=== PATIENT | female | born 1970 | race Caucasian/White ===

== ENCOUNTER 2019-02-11 07:47 | Inpatient (IN) | payer MEDICAID ==
[~2019-02-11] VITALS: Ht 162.6 cm; Wt 88.9 kg
[2019-02-11 07:52] VITALS: Ht 162.6 cm; Wt 88.9 kg
--- NOTE | 2019-02-11 08:30 | NUR ---
PT C/O INTERMITTENT FEVER AND NAUSEA X2 DAYS, PT REPORTS RECENT TUMMY TUCK 21 DAYS AGO AND STS "I ACCIDENTALLY PULLED OUT THE 2 DRAINS" SHE IS POINTING TO HER PELVIC REGION, PT DENIES ANY WHITE DRAINAGE, PT AAOX4, RESPIRATIONS EVEN AND UNLABORED, NO S/S RESP DISTRESS NOTED AT THIS TIME, PT AFEBRILE AT THIS TIME, INCISION WITH SUTURES NOTED ACROSS LOWER ABD WARM TO TOUCH WITH MILD ERYTHEMA NOTED, 2 PUNCTURE SITES NOTED TO RIGHT CORNER AND LEFT CORNER OF PELVIS, NO DRIANAGE NOTED, NO NAUSEA AND/OR VOMITING AT THIS TIME. PT GOWNED PLACED ON FULL CM, SINUS TACYCARDIA, SPOUSE AT BEDSIDE, PT IN NAD AT THIS TIME.
--- NOTE | 2019-02-11 08:31 | NUR ---
PT ALSO C/O LOWER QUADRANT PAIN AT INCISION SITE
--- NOTE | 2019-02-11 08:40 | NUR ---
PT AMBULATORY WITH STEADY GAIT TO RESTROOM
--- NOTE | 2019-02-11 08:50 | NUR ---
WARM BLANKET PROVIDED PER PT REQUEST AND COMFORT, PT AFEBRILE AT THIS TIME
[2019-02-11 08:57] LABS: CALCIUM 8.6 mg/dL (8.5-10.1); CARBON DIOXIDE 14.9 mmol/L (21-32); CHLORIDE SERUM 99 mmol/L (98-107); CREATININE SERUM 0.9 mg/dL (0.6-1.0); GFR1 > 60 mL/min; GLUCOSE SERUM 124 mg/dL (74-106); POTASSIUM SERUM 3.5 mmol/L (3.5-5.1); SODIUM SERUM 132 mmol/L (136-145)
--- NOTE | 2019-02-11 09:01 | NUR ---
PT BACK FROM CT IN STABLE CONDITION
[2019-02-11 09:02] LABS: ALBUMIN 2.9 g/dL (3.4-5.0); ALKALINE PHOSPHATASE 90 U/L (46-116); ALT/SGPT 16 U/L (14-59); AST/SGOT 13 U/L (15-37); BILIRUBIN TOTAL 0.5 mg/dL (0.20-1.00); TOTAL PROTEIN, SERUM 7.5 g/dL (6.4-8.2)
--- NOTE | 2019-02-11 09:05 | NUR ---
ICE CHIPS PROVIDED PER MD GUERRERO VERBAL OKAY
[2019-02-11 09:22] LABS: UA SPECIFIC GRAVITY >=1.030 (1.005-1.035); microscopic required? YES; urine erythrocyte 3+ (NEGATIVE)
--- NOTE | 2019-02-11 09:42 | NUR ---
PT RESTING IN POSITION OF COMFORT, PT IN NAD, AT BEDSIDE, CALL LIGHT WITHIN REACH
--- NOTE | 2019-02-11 10:13 | NUR ---
CT RESULST REVIEWED, MD GUERRERO MADE AWARE
[2019-02-11 10:18] LABS: PLATELET COUNT 364 x10^3mcL (130-400); RED CELL DISTRIBUTION WIDTH 17.1 % (11.5-14.5)
--- NOTE | 2019-02-11 10:29 | NUR ---
PT C/O "SILL BEING SOOOO COLD" ORAL TEMP CHECKED, PT FEBRILE, BLANKET REMOVED, COOLING MEASURES INITIATED, MD GUERRERO MADE AWARE
--- NOTE | 2019-02-11 10:36 | NUR ---
PER MD GUERRERO VERBAL ORDER, ADMIN 1GM TYLENOL PO, TYLENOL ADMIN.
--- NOTE | 2019-02-11 11:26 | NUR ---
PT SPOUSE NUMBER VERIFIED CELL, PT REQUESTING TO CONTACT HIM WHEN SHE GETS ADMITTED.
--- NOTE | 2019-02-11 11:28 | NUR ---
PT IN POSITION OF COMFORT, NEW ICE PACKS APPLIED TO BACK OF NECK AND GROIN, CALL LIGHT WITHIN REACH
--- NOTE | 2019-02-11 11:34 | NUR ---
LIGHTS OFF PER PT REQUEST AND COMFORT
[2019-02-11] MEDS ORDERED: METFORMIN ER500 M1 PO (11:35)
[2019-02-11] MEDS ORDERED: LOSARTAN POTASS25 M1 (11:37)
[2019-02-11] MEDS ORDERED: LANTUS SOLOS100 U/M1 (11:37)
--- NOTE | 2019-02-11 11:54 | NUR ---
ABHISHEK [facility], CALLED FOR REPORT, REPORT GIVEN, ABHISHEK CURRENTLY SPEAKING WITH MD GUERRERO PER REQUEST. ABHISHEK WAS MADE AWARE PT UNABLE TO RECALL THE NAME OF THE HOSPITAL WHERE THE PROCEDURE TOOK PLACE. I INFORMED HER I WILL CONTACT HER IF PT IS ABLE TO PROVIDE MORE INFO. ABHISHEK CALL THUY NUMBER GIVEN [phone] EXT. [phone]
[2019-02-11 12:09] LABS: MONOCYTE 4 % (0-7); SEGMENTED NEUTROPHILS 85 % (37-75)
[2019-02-11 12:10] LABS: rbc morphology (normal/abnorm) NORMAL (NORMAL)
--- NOTE | 2019-02-11 12:32 | NUR ---
PT PROVIDED THE FOLLOWING INFORMATION REGARDING THE PROCEDURE.. DR. CARDOSO [id number] [facility]. [address] MD GUERRERO MADE AWARE BACK AT BEDSIDE
--- NOTE | 2019-02-11 13:07 | NUR ---
PT ASLEEP BUT AROUSABLE IN POSITION OF COMFORT, RESPIRATIONS EVEN AND UNLABORED, SPOUSE AT BEDSIDE, CALL LIGHT WITHIN REACH
--- NOTE | 2019-02-11 14:18 | NUR ---
PT AMBULATORY WITH STEADY GAIT TO RESTROOM
--- NOTE | 2019-02-11 15:30 | NUR ---
RECEIVED PT VIA [email or web address] FROM E/D, ACCOMPANIED BY TRANSPORTER AND PT'S , AAYUSH BURKS. PT A/A/O X 4, CALM, COOPERATIVE. AMBULATORY, NO GAIT OR BALANCE IMPAIRMENT NOTED WHEN WALKING FROM GURNEY TO BED. PT IS TACHYCARDIC AT HR 103, DENIES CHEST PAIN OR DISCOMFORT AT THIS TIME. SCD BY BEDSIDE. NO ACUTE RESPIRATORY DISTRESS NOTED. ABD SOFT, ROUND, TENDERNESS ON PALPATION AROUND SURGICAL SITES (C/O CONSTANT THROBBING ABD PAIN 10/10 THAT IS EXACERBATED BY NOTHING AND RELIEVED BY PAIN MEDICATIONS; CLOSED SURGICAL WOUNDS NOTED TO UMBILICUS AND BILATERAL LOWER ABDOMEN, BOTH SUPERVISOR TOY ASSEMBLY), NORMOACTIVE BOWEL SOUNDS, LAST BM 02/04/19, +NAUSEA. POOR PO INTAKE > 3 DAYS; UNABLE TO TOLERATE SOLID FOOD AT THIS TIME. VOIDS FREELY, DENIES DYSURIA. IV SITE RAC 20G, CDI. ORIENTED PT AND TO ROOM, BED CONTROLS, CALL LIGHT SYSTEM. SIDE RAILS UP X 2, BED IN LOW POSITION. WILL ENDORSE TO CARROLL LOBO.
[2019-02-11] MEDS ORDERED: LOSARTAN POTASS50 M1 PO (16:06)
[2019-02-11 16:08] VITALS: BP 117/65
[2019-02-11 16:37] LABS: MAGNESIUM 1.9 mg/dL (1.8-2.4); PHOSPHOROUS 2.9 mg/dL (2.5-4.9)
--- NOTE | 2019-02-11 18:00 | NUR ---
PATIENT WAS C/O OF NAUSEA AND VOMITING, MEDICATED PATIENT WITH ZOFRAN PER PREOTOCOL (SEE EMAR). PATIENT WAS C/O SEVERE PAIN 10/10 TO LOWER BACK, MEDICATED PATIENT WITH MORPHINE PER PROTOCOL (SEE EMAR) . REPOSITION PATIENT FOR COMFORT. CALL LIGHT WITHIN REACH BED IN LOW POSITION. WILL CONTINUE TO MONITOR.
--- NOTE | 2019-02-11 18:36 | NUR ---
PATIENT WAS C/O CHILLS, ASSESSED PATIENT TEMP, 101.8. MEDICATED PATIENT WITH TYLENOL PER PROTOCOL (SEE EMAR). COOLING MEASURE WERE APPLIED AT THIS TIME. PATIENT REPORTS CONTINOUS PAIN, PAGED RESIDENT AT THIS TIME, ALSO PAGED RESIDENT FOR CLARIFICATION FOR TWO BOLUS THAT WERE ORDERED IN ER. ABX INFUSING TO RAC, IV SITE CDI&PATENT. CALL LIGHT WTHIN REACH, BED IN LOW POSITION, WILL ENDORSE REPORT TO NIGHT RN.
--- NOTE | 2019-02-11 19:40 | NUR ---
RECEIVED PT SITTING IN BED W/ AT BEDSIDE. SHE IS ALERT,ORIENTED X4. LUNGS CTA. NO SOB ON ROOM AIR. BOWEL SOUNDS ACTIVE. W/ SX SITE TO LOWER ABDOMEN KARIN. PT IS C/O PAIN TO SX SITE 09/26 ( AFTER MORPHINE WAS GIVEN BY AM NURSE). W/ IVF NS INFUSING AT 100 CC/HR VIA RTAC. CALL LIGHT W/IN REACH.
--- NOTE | 2019-02-11 20:17 | NUR ---
PT STATED PAIN STILL AT 8/10. MEDICATED PT W/ NORCO 7.5/325 MG PO.
[2019-02-11 21:32] VITALS: BP 115/49
--- NOTE | 2019-02-11 22:53 | NUR ---
CALLED [facility] AND SPOKE W/ LB WHO HANDLES PT'S TRANSFERS. PER LB, PT'S TRANSFER WAS CANCELLED BY Bere HEATH . NO OTHER INFORMATION WAS GIVEN.
[2019-02-11 23:30] VITALS: BP 106/64
--- NOTE | 2019-02-12 02:00 | NUR ---
PT APPEARS TO BE SLEEPING COMFORTABLY.
--- NOTE | 2019-02-12 05:22 | NUR ---
PT REMAINS ASLEEP. SHE WAS MEDICATED FOR PAIN X1 THIS SHIFT. SHE HAS NO C/O PAIN AT THIS TIME. PT KEPT NPO EXCEPT FOR MEDS ORDERED. PT AMBULATING W/O DIFFICULTY. IVF NS INFUSING AT 100 CC/HR VIA RTAC. ALL NEEDS ATTENDED TO.
--- NOTE | 2019-02-12 05:53 | NUR ---
PT C/O HEADACHE 09/26. PT ALSO W/ TEMP OF 101.8 ORALLY. TYLENOL 650 MG PO GIVEN.
[2019-02-12 06:22] VITALS: BP 119/47
--- NOTE | 2019-02-12 06:55 | NUR ---
PT IS RESTING MORE COMFORTABLY. NO C/O HEADACHE AT THIS TIME. TEMP CRDXECFFP=690.2 (ORALLY) AFTER TYLENOL. COOLING MEASURES IMPLEMENTED.
--- NOTE | 2019-02-12 07:30 | NUR ---
RECEIVED PATIENT AWAKE/ALERT IN BED, DENIES PAIN, MED-SURG. IV TO RAC INFUSING WELL. POC EXPLAINED. COOL MEASURES. CALL LIGHT WITHIN REACH.
[2019-02-12 08:29] VITALS: BP 95/50
[2019-02-12 08:42] LABS: CALCIUM 8.3 mg/dL (8.5-10.1); CARBON DIOXIDE 14.8 mmol/L (21-32); CHLORIDE SERUM 102 mmol/L (98-107); CREATININE SERUM 0.8 mg/dL (0.6-1.0); GFR1 > 60 mL/min; GLUCOSE SERUM 145 mg/dL (74-106); PHOSPHOROUS 1.7 mg/dL (2.5-4.9); POTASSIUM SERUM 3.3 mmol/L (3.5-5.1); SODIUM SERUM 133 mmol/L (136-145)
[2019-02-12 08:46] LABS: BASOPHIL % 0.3 % (0-2); PLATELET COUNT 338 x10^3mcL (130-400)
[2019-02-12 08:48] LABS: RED CELL DISTRIBUTION WIDTH 17.5 % (11.5-14.5)
--- NOTE | 2019-02-12 09:55 | NUR ---
DR. GRAY AND KAY LYONS AT BEDSIDE SPOKE TO PATIENT REGARD ABDOMINAL WOUND, CN TRANSLATE IN MONGOLIAN FOR PROCEDURE ABDOMINAL WOUND DEBRIDEMENT AND POSSIBLE WOUND VAC DEVICE PLACEMENT. PATIENT AGREE WITH PROCEDURE. PER DR. GRAY IF PATIENT HAVE ANY MORE QUESTIONS LATER WILL ADDRESSED IN OR.
--- NOTE | 2019-02-12 10:15 | NUR ---
PATIENT SIGN CONSENT FOR ABDOMINAL DEBRIDEMENT AND POSSIBLE WOUND VAC DEVICE PLACEMENT. NO FURTHER QUESTIONS, REMAIN AT BEDSIDE ASSIST PATIENT WITH SGAE WIPE. NEEDS MET.
--- NOTE | 2019-02-12 12:11 | NUR ---
PATIENT RESTING IN BED NO COMPLAIN, C/O HUNGRY. BS 90 NO COVERAGE NEEDED. ZOSYN IVPB ADMINISTERED. CONT TO MONITOR.
[2019-02-12 12:57] VITALS: BP 108/59
--- NOTE | 2019-02-12 14:25 | NUR ---
OR NURSE RAI AT BEDSIDE PICKING UP PATIENT AT THIS TIME. OFF FLOOR VIA BED. IV HEPLOCK. NO SWELLING NOTED.
--- NOTE | 2019-02-12 16:56 | NUR ---
PATIENT BACK FROM OR AWAKE/ALERT NO C/O PAIN AT THIS TIME, NEW IV TO LH #20G AND MID-LOW ABDOMEN INCISION WITH WOUND VAC IN PLACE. CONNECT PATIENT TO IV PUMP CONT IVF AT 100ML/HR. KCL 20MEQ PO X1 ADMINISTERED ORDERED FOR K 3.3 AND BS 121 NO COVERAGE NEEDED. JUICE AND JELLO OFFERED, CONT TO MONITOR.
--- NOTE | 2019-02-12 17:49 | NUR ---
PATIENT UP TO BRP AND BACK TO BED, NO C/O PAIN. VOIDED. ZOSYN IVPB INFUSING AT 100ML/HR TO LH IV PATENT, INFORM PATIENT DOCTOR ORDER CLEAR LIQUID DIET AND ADV IN AM.
--- NOTE | 2019-02-12 18:33 | NUR ---
PATIENT SITTING UP IN BED EATING HER CLEAR LIQUID DIET, NO COMPLAIN. VANCOMYCIN IVPB INFUSING AT 250ML/HR, NEEDS MET. CONT TO MONITOR.
--- NOTE | 2019-02-12 19:10 | NUR ---
RECEIEVED REPORT FROM DAY SHIFT NURSE, ROVERTO HODGES. PT IS AAOX4. SPEECH IS CLEAR. DENIES SPENCE. IRISH SPEAKING. M/S PT. DENIES CP. PULSES ARE PALPABLE. NO EDEMA NOTED. BREATHING IS EVEN AND UNLABORED ON RA. LUNG SOUNDS CTA. NO SIGNS OF RESP DISTRESS. DENIES SOB. ABD IS SOFT, ROUND, AND NONDISTENDED. DENIES N/V/D. VOIDS FREELY. DENIES DYSURIA. AMBULATORY. SX WOUND NOTED TO UMBILICUS AND LOWER ABD, KARIN. MID ABD WITH WOUND VAC, CDI DRAINING RED OUTPUT. DENIES ANY PAIN AT THIS TIME. AT BEDSIDE. IV TO RAC DRY AND INTACT. NO ERYTHEMA NOTED. BED IN LOWEST POSITION. CALL LIGHT WITHIN REACH. WILL CONTINUE TO MONITOR.
[2019-02-12 21:25] VITALS: BP 104/62
--- NOTE | 2019-02-12 21:31 | NUR ---
ROUTINE MEDICATIONS WERE GIVEN AND TOLERATED WELL. NO ACUTE DISTRESS NOTED. BREATHING IS EVEN AND UNLABORED ON RA. NO SIGNS OF RESP. DISTRESS. ASSISTED PT TO THE RESTROOM, ABLE TO WALK FINE. DENIES ANY PAIN AT THIS TIME. AT BEDSIDE. BED IN LOWEST POSITION. CALL LIGHT WITHIN REACH. WILL CONTINUE TO MONITOR.
--- NOTE | 2019-02-12 23:00 | NUR ---
PT C/O SPENCE AND NAUSEA. MEDICATED WITH TYLENOL AND ZOFRAN PER APR ORDER. WILL REASSESS AND CHECK EFFECTIVENESS. BREATHING IS EVEN AND UNLABORED ON RA. NO SIGNS OF RESP DISTRESS. BED IN LOWEST POSITION. CALL LIGHT WITHIN REACH. WILL CONTINUE TO MONITOR.
--- NOTE | 2019-02-13 01:14 | NUR ---
PT IS RESTING COMFORTABLY IN BED, ON PHONE. BREATHING IS EVEN AND UNLABORED ON RA. NO SIGNS OF RESP. DISTRESS. PT DENIES NAUSEA OR PAIN AT THIS TIME. STATED THE MEDICATION HELPED HER A LOT. BED IN LOWEST POSITION. CALL LIGHT WITHIN REACH. WILL CONTINUE TO MONITOR.
--- NOTE | 2019-02-13 02:16 | NUR ---
PT RETURNING BACK FROM THE RESTROOM. DENIES ANY PAIN AT THIS TIME. BREATHING IS EVEN AND UNLABORED ON RA. NO SIGNS OF RESP DISTRESS. PT UPSET THAT SHE CANNOT SLEEP. ASKED PT IF SHE WOULD LIKE A SLEEPING PILL, SHE SAID YES. AWARE. AWAITING ORDERS.
--- NOTE | 2019-02-13 03:49 | NUR ---
PT IS RESTING COMFORTABLY WITH EYES CLOSED, BUT EASILY AROUSABLE WHEN SPOKEN TO. BREATHING IS EVEN AND UNLABORED ON RA. NO SIGNS OF RESP. DISTRESS. BED IN LOWEST POSITION. CALL LIGHT WITHIN REACH. WILL CONTINUE TO MONITOR.
--- NOTE | 2019-02-13 05:31 | NUR ---
PT SLEPT IN SHORT INTERVALS THROUGHOUT THE NIGHT AND COMPLIED WITH NURSING CARE WITH NO ACUTE EVENTS OCCURRING DURING THE SHIFT. COMFORT AND SAFETY MEASURES MAINTAINED. ALL NEEDS ASSESSED AND ATTENDED TO. WILL CONTINUE TO MONITOR AND ENDORSE CARE TO DAY SHIFT NURSE.
--- NOTE | 2019-02-13 06:02 | NUR ---
PT HAVING REACTION TO VANCOCIN. HIVES NOTED TO R ARM. PT DENIES ANY SOB OR DIFFICULTY BREATHING. MEDICATION STOPPED, AND D/C'D FROM PT. FLUSHED PTS IV. WILL CALL DR DELCID AND MAKE AWARE.
--- NOTE | 2019-02-13 06:06 | NUR ---
PER DR DELCID, WILL ORDER BENADRYL AND DO NOT CONTINUE MEDICATION. WILL CARRY OUT ORDERS AND CONTINUE MONITORING PT.
[2019-02-13 06:08] VITALS: BP 94/66
--- NOTE | 2019-02-13 07:20 | NUR ---
RECEIVED PT FROM BRAND REPRESENTATIVE RN. A/OX4. MED SURG. DENIES CHEST PAIN/PRESSURE. RESPIRATIONS EQUAL AND UNLABORED ON RA. DENIES SOB. PT DENIES ANY PAIN AT THIS TIME. PT DENIES ANY N/V AT THIS TIME. S/P ADBOMINAL WOUND DEBRIDEMENT ON 02/12, WOUND VAC IN PLACE TO LOWER MID ABDOMEN, CDI, DRAINING SANGINEOUS DRAINAGE. SURGICAL WOUND TO UMBILICUS AND LOWER ABDOMEN, KARIN. NO DRAINAGE NOTED. IV TO RH SALINE LOCKED. NO REDNESS OR SWELLING NOTED. HIVES NOTED TO LH SMALL AND DRY. WILL CONTINUE TO MONITOR. CALL LIGHT IN REACH. BED IN LOWEST POSITION.
[2019-02-13 08:04] VITALS: BP 106/61
--- NOTE | 2019-02-13 09:46 | NUR ---
PT WALKED TO BATHROOM. TOLERATED WELL. PT DENIES ANY ABDOMINAL PAIN AT THIS TIME. IV TO LH PATENT AND INFUSING. NO REDNESS OR SWELLING NOTED. GIVEN PO MED. TOLERATED WELL. BLOOD PRESURE CHECKED WAS 110/57, HR 79. PT ASKING FOR MEDICATION FOR ACID REFLUX, EXPLAINED TO PT PRILOSEC WAS GIVEN THIS AM, PT STILL ASKING FOR PRILOSEC. RIN WAREHOUSE AND RECEIVING SUPERVISOR MADE AWARE. WILL CONTINUE TO MONITOR. CALL LIGHT IN REACH. BED IN LOWEST POSITION.
[2019-02-13 11:24] VITALS: BP 121/67
[2019-02-13 16:57] VITALS: BP 112/59
--- NOTE | 2019-02-13 19:10 | NUR ---
PT RECEIVED A/O X4, ABLE TO MAKE NEEDS KNOWN. MED-SURG, DENIES ANY CP/PRESSURE. PULSES PALPABLE, NO EDEMA PRESENT. BREATHING IS EVEN AND UNLABORED ON RA, NO RESP DISTRESS NOTED. ABD SOFT AND ROUND, BOWEL TONES ACTIVE X4 QUAD, DENIES N/V. S/P WOUND DEBRIDEMENT AND WOUND VAC PLACEMENT ON 02/12/19. WOUND VAC TO MID LOWER ABD IN PLACE, SUCTION TUBING FREE FROM KINDS. SURGICAL WOUND TO MID ABD, DRY, KARIN. PT DENIES HAVING ANY PAIN AT THIS TIME. IV TO LW, PATENT AND INTACT, SITE WNL. NO ACUTE DISTRESS OBSERVED. FAMILY AT BEDSIDE. BED IN LOWEST SETTING, SIDE RAILS UP X2, CALL LIGHT WITHIN REACH. WILL CONT TO MONITOR.
--- NOTE | 2019-02-13 19:10 | NUR ---
PT RECEIVED A/O X4, ABLE TO MAKE NEEDS KNOWN. MED-SURG, DENIES ANY CP/PRESSURE. PULSES PALPABLE, NO EDEMA PRESENT. BREATHING IS EVEN AND UNLABORED ON RA, NO RESP DISTRESS NOTED. ABD SOFT AND ROUND, BOWEL TONES ACTIVE X4 QUAD, DENIES N/V. S/P WOUND DEBRIDEMENT AND WOUND VAC PLACEMENT ON 02/12/19. WOUND VAC TO MID LOWER ABD IN PLACE, SUCTION TUBING FREE FROM KINKS. SURGICAL WOUND TO MID ABD, DRY, KARIN. PT DENIES HAVING ANY PAIN AT THIS TIME. IV TO LW, PATENT AND INTACT, SITE WNL. NO ACUTE DISTRESS OBSERVED. FAMILY AT BEDSIDE. BED IN LOWEST SETTING, SIDE RAILS UP X2, CALL LIGHT WITHIN REACH. WILL CONT TO MONITOR.
--- NOTE | 2019-02-13 19:27 | NUR ---
ENDORSED CARE TO POWDER TRUCK DRIVER RN. ALL QUESTIONS AND CONCERNS ADDRESSED.
[2019-02-13 20:25] VITALS: BP 106/46
--- NOTE | 2019-02-14 00:13 | NUR ---
PT AWAKE AND ALERT, TALKING ON CELL PHONE. BREATHING IS EVEN AND UNLABORED, NO RESP DISTRESS NOTED. PT DENIES HAVING ANY PAIN AT THIS TIME. WOUND VAC IN PLACE TO LOWER ABD, TUBING FREE OF KINKS, BLOODY OUTPUT NOTED IN DRAINAGE CHAMBER. IV ABX INFUSING WELL, SITE WNL. NO ACUTE DISTRESS OBSERVED. CALL LIGHT WITHIN REACH. WILL CONT TO MONITOR.
--- NOTE | 2019-02-14 01:03 | NUR ---
PT C/O ITCHINESS TO NOSE AND REQUESTING BENADRYL. RESIDENT CALLED AND DR JOHNSON MADE AWARE. ONE TIME ORDER OF BENADRYL PO GIVEN ORDERED. NO ACUTE DISTRESS NOTED. WILL CONT TO MONITOR.
[2019-02-14 05:31] VITALS: BP 102/50
--- NOTE | 2019-02-14 06:37 | NUR ---
PT SLEPT AT INTERVALS THROUGHOUT THE EVENING. BREATHING IS EVEN AND UNLABORED, NO RESP DISTRESS NOTED. PT DENIES HAVING ANY PAIN AT THIS TIME. IV TO LW INTACT. WOUND VAC IN PLACE TO LOWER ABD, TUBING FREE OF KINKS, 25 ML SEROSANGUINEOUS OUTPUT NOTED. NO ACUTE CHANGES ENCOUNTERED DURING SHIFT. ALL NEEDS MET AND ANTICIPATED. CALL LIGHT WITHIN REACH. WILL ENDORSE CARE TO AM NURSE.
[2019-02-14 06:45] LABS: BASOPHIL % 0.1 % (0-2); PLATELET COUNT 377 x10^3mcL (130-400)
--- NOTE | 2019-02-14 07:18 | NUR ---
PT IN NO ACUTE DISTRESS. CONTINUITY OF CARE ENDORSED TO AM NURSE. ALL QUESTIONS AND CONCERNS ADDRESSED.
[2019-02-14 07:22] LABS: RED CELL DISTRIBUTION WIDTH 17.8 % (11.5-14.5)
[2019-02-14 07:37] LABS: CALCIUM 8.3 mg/dL (8.5-10.1); CARBON DIOXIDE 17.7 mmol/L (21-32); CHLORIDE SERUM 108 mmol/L (98-107); CREATININE SERUM 0.6 mg/dL (0.6-1.0); GFR1 > 60 mL/min; GLUCOSE SERUM 147 mg/dL (74-106); POTASSIUM SERUM 3.1 mmol/L (3.5-5.1); SODIUM SERUM 139 mmol/L (136-145)
--- NOTE | 2019-02-14 07:50 | NUR ---
RECEIVED PT FROM CROSSING SUPERVISOR RN. Noam/HAO. MED SURG. DENIES CHEST PAIN/PRESSURE. RESPIRATIONS EQUAL AND UNLABORED ON RA. PT DENIES ANY ABDOMINAL PAIN AT THIS TIME. PT DENIES ANY N/V AT THIS TIME. WOUND VAC IN PLACE TO LOWER ABDOMEN, DRESSING CDI. NOTED MACHINE ALARMING BLOCKAGE. JEARLD LAUREN AT BEDSIDE, EXPLAINED TO PT TO LIE FLAT TO PREVENT SUCTION FROM BEING BLOCKED. JERALD LAUREN UPDATED PT WILL AWAIT FOR HOME HEALTH TO BE ARRANGED, POSSIBLE D/C TOMORROW. PT VERBALIZED UNDERSTANDING. IV PATENT AND INFUSING TO LW, NO REDNESS OR SWELLING NOTED. WILL CONTINUE TO MONITOR. CALL LIGHT IN REACH. BED IN LOWEST POSITION.
[2019-02-14 09:16] VITALS: BP 110/64
--- NOTE | 2019-02-14 09:43 | NUR ---
PT LAYING IN BED RESTING. NO ACUTE RESP DISTRESS NOTED ON RA. PT DENIES ANY PAIN AT THIS TIME. GIVEN PO MEDS. TOLERATED WELL. BLOOD PRESSURE CHECKED WAS 91/64. WOUND VAC TO LOWER ABDMEN IN PLACE, DRESSING CDI, WOUND VAC ALARMING BLOCKAGE, ENCOURAGED PT TO LIE FLAT TO ALLOW FOR BETTER DRAINAGE. PT VERBALIZED UNDERSTANDING. WOUND VAC DRAINING. WILL CONTINUE TO MONITOR. CALL LIGHT IN REACH. BED IN LOWEST POSITION.
[2019-02-14 12:03] VITALS: BP 110/63
--- NOTE | 2019-02-14 12:14 | NUR ---
PT SITTING UP IN BED. PT SOBBING, PT STATES "I CANT SLEEP. MY LEGS DONT STOP MOVING. I FEEL SAD ALL THE TIME." JERALD LAUREN MADE AWARE. PT STATES "I CANT GO TO THE BATHROOM." MEDICATED PER EMAR. IV FLUSHED WELL TO LW. NO REDNESS OR SWELLING NOTED. IV ANTIBIOTIC INFUSING ORDERED. WILL CONTINUE TO MONITOR. CALL LIGHT IN REACH. BED IN LOWEST POSITION.
--- NOTE | 2019-02-14 15:05 | NUR ---
Initial Nutrition Assessment Dx: Abd pain, possible post op abscess PMHx: HTN, GERD and Type 2 DM PSHx: tummy tuck 21 days ago at [facility] Labs: (02/14) K:3.1L, BH, Ca:8.3L, WBC:11.4H, H/H:8.3/26L(02/11) A1c:7.4H Meds: Colace, Cozaar, Humulin, Morphine, [place], Protonix, Prilosec, NS IV, Tylenol, Zofran, Zosyn Diet: CCHO PO Intakes: (02/13) B:80% L:100% D:100% (02/14) B:100% Ht: 64in, 5'4" Wt:196#, 88.904kg BMI: 33.6kg/m2 (obese) IBW:120#, 54.5kg %IBW:163% UBW: 195-200# Age: 48 y/o female Food Allergies: NKFA Skin: closed s/p wound debridement and wound vac placement on 02/12 Georges:21 Edema: none GI: active bowel sounds Last BM:02/13 Per H&P, pt was admitted with abd pain x 4 days. Pt also reports nausea with some dry heaving, constipation with LBM 7 days ago and decreased appetite. Pt recently had a tummy tuck procedure 21 days ago at a hospital in [place]. Pt reports that she accidentally pulled out both drains in her sleep 5 days ago and noticed yellow pus like fluid coming out of one of the drains. Per progress note 02/14, pt noted to have wound vac on abd area. D/C pending for home health arrangements. Once arranged, pt may be discharged home. During visit, pt awake and sitting up in bed with family at bedside. Pt reports to having a good appetite with no GI issues at this time. Nursing trigger: N/V/D>3days,poor PO intake>3 days, unable to ingest diet for age Problem with: N: V: D: C:No Problems with: Chewing: Swallowing: No Current appetite: Good Recent wt changes: %wt change: No Vitamin/Supplement: No Special Diet at Home: Regular Physical activity: No Education: declined, pt had visitors and wanted to spend time with them. Will offer education at next visit. Estimated Nutritional Needs Based on ideal body weight of 55kg. Energy: 6968-2169 kcal/d (25-30 kcal/kg for maintenance) Protein: 66-77 gm/d (1.2-1.4gm/kg for wound healing, pt with wound vac) Fluid: 1375-1650mL/d (1 mL/kcal) or per MD. Nutrition Diagnosis 1. Increased protein needs related to altered skin integrity as evidenced by pt with wound vac. Intervention/RDN Recommendation(s) 1. Recommend continue CCHO diet. Monitor/Evaluate Goal: continued PO intake meeting >75% estimated needs and wound healing Monitor: PO intake, Labs, GI function, Skin integrity, Weights. F/U in 3-5 days as moderate risk (1/-3)
--- NOTE | 2019-02-14 15:06 | NUR ---
1. Recommend continue CCHO diet.
[2019-02-14 16:34] VITALS: BP 101/59
--- NOTE | 2019-02-14 19:40 | NUR ---
RECEIVED REPORT FROM DAY SHIFT RN. PT RESTING IN BED. AA&O X4. BREATHING EVEN AND UNLABORED ON ROOM AIR. NO C/O PAIN AT THIS TIME. NO DISTRESS NOTED. ABD SOFT ROUND. BOWEL SOUNDS ACTIVE X4 QUADS. S/P ABD WOUND DEBRIDEMENT AND WOUND VAC PLACEMENT TO MID LOWER ABD 02/12/19. TRANSPARENT DRESSING TO ABD IN PLACE, C/D/I. IV TO LEFT WRIST, SALINE LOCKED. SAFETY MEASURES IN PLACE. BED IN LOWEST POSITION. SIDE RAILS UP X2. INSTRUCTED PT TO USE THE CALL LIGHT FOR ASSISTANCE. CALL LIGHT WITHIN REACH. FAMILY AT BEDSIDE.
[2019-02-14 20:29] VITALS: BP 109/63
--- NOTE | 2019-02-14 23:16 | NUR ---
NORCO GIVEN FOR ABD PAIN 09/26. BENADRYL FOR ITCHINESS.
--- NOTE | 2019-02-15 03:20 | NUR ---
PT RESTING WITH EYES CLOSED. NO FACIAL GRIMACING. NO DISTRESS NOTED. WOUND VAC IN PLACE DRAINING SEROSANGUINEOUS FLUID. CALL LIGHT WITHIN REACH. WILL CONTINUE TO MONITOR.
[2019-02-15 06:17] VITALS: BP 108/66
--- NOTE | 2019-02-15 06:28 | NUR ---
PT C/O HEADACHE 11/26. MEDICATED WITH TYLENOL.
[2019-02-15 06:39] LABS: BASOPHIL % 1.5 % (0-2); PLATELET COUNT 373 x10^3mcL (130-400)
[2019-02-15 06:58] LABS: RED CELL DISTRIBUTION WIDTH 17.7 % (11.5-14.5)
--- NOTE | 2019-02-15 07:00 | NUR ---
PT RESTING WITH EYES CLOSED. BREATHING EVEN AND UNLABORED ON ROOM AIR. NO FACIAL GRIMACING. NO DISTRESS NOTED. WOUND VAC TO MID ABD IN PLACE. ABD DRESSING C/D/I. SAFETY MEASURES MAINATINED. ALL NEEDS ATTENDED TO CALL LIGHT WITHIN REACH. WILL ENDORSE CONTINUITY OF CARE TO DAY SHIFT RN.
[2019-02-15 07:16] LABS: CARBON DIOXIDE 24.2 mmol/L (21-32); CHLORIDE SERUM 106 mmol/L (98-107); CREATININE SERUM 0.6 mg/dL (0.6-1.0); GFR1 > 60 mL/min; GLUCOSE SERUM 136 mg/dL (74-106); SODIUM SERUM 140 mmol/L (136-145)
[2019-02-15 07:22] LABS: POTASSIUM SERUM 2.8 mmol/L (3.5-5.1)
--- NOTE | 2019-02-15 07:30 | NUR ---
PATIENT RECEIVED IN BED. NO SIGNS OF DISTRESS. PATIENT AMBULATORY TO RESTROOM WHILE CARRYING WOUND VAC. WILL CONTINUE TO MONITOR. CALL LIGHT WITHIN REACH.
[2019-02-15 07:43] LABS: CALCIUM 8.2 mg/dL (8.5-10.1)
--- NOTE | 2019-02-15 07:50 | NUR ---
Reported new lab result K+ 2.8 to LEONIDAS Horn. Will continue to monitor patient.
[2019-02-15 08:45] VITALS: BP 130/81
[2019-02-15] MEDS ORDERED: CLEOCIN HCL150 MG PO (10:21)
[2019-02-15] MEDS ORDERED: VITAMIN C500 M6 PO (10:23)
--- NOTE | 2019-02-15 10:23 | NUR ---
SPOKE WITH LEONIDAS GAR. DISCHARGE TODAY PENDING HOME HEALTH SET UP.
[2019-02-15] MEDS ORDERED: MOT800 PO (10:28)
--- NOTE | 2019-02-15 12:00 | NUR ---
Offered to check blood sugar. Patient said she was sleeping and refused blood sugar checks in afternoon. Will continue to monitor.
[2019-02-15 17:46] VITALS: BP 110/58
--- NOTE | 2019-02-15 18:59 | NUR ---
PATIENT RESTING IN BED. WOUND VAC IN PLACE. PATIENT ON IV FLUIDS STILL. ONCE WOUND VAC EQUIPMENT DELIVERED, PATIENT IS READY TO BE DISCHARGED HOME TONIGHT. WOUND VAC TEGADERM TO BE REMOVED WITH TOP FOAM ATTACHED. WILL ENDORSE TO FORGESMITH RN.
[2019-02-15 19:09] VITALS: BP 112/76
--- NOTE | 2019-02-15 19:20 | NUR ---
RECEIVED PT IN BED, A/A/O X 4, CALM, COOPERATIVE. DENIES CHEST PAIN OR DISCOMFORT AT THIS TIME. SCD BY BEDSIDE. NO ACUTE RESPIRATORY DISTRESS NOTED. AMBULATORY, NO GAIT OR BALANCE IMPAIRMENT NOTED WHEN WALKING. NOTED SX WOUND TO UMBILICUS AND WOUND VAC TO MID ABD, DRAINING SEROSANGUINOUS DRAINAGE. IV SITE TO RW 22G, CDI. SIDE RAILS UP X 2, BED IN LOW POSITION, CALL LIGHT WITHIN REACH. WILL CONTINUE TO MONITOR.
--- NOTE | 2019-02-15 21:19 | NUR ---
CALLED [facility] TO FOLLOW UP RE: DELIVERY OF WOUND VAC FOR PT TO TAKE HOME, PER [facility] STAFF THERE WAS NO ORDER PLACED FOR WOUND VAC DELIVERY TONIGHT. PATIENT UPDATED AND SO WITH PRIMARY RN.
[2019-02-15 22:32] VITALS: BP 116/62
--- NOTE | 2019-02-16 | NUR ---
PT C/O INTERMITTENT CRAMPING ABD PAIN 07/27; GIVEN NORCO 7.5/325 FOR HER PAIN, HELPED REPOSITION PT, AND DARKENED ROOM FOR COMFORT. WILL CONTINUE TO MONITOR.
--- NOTE | 2019-02-16 03:15 | NUR ---
PT'S WOUND VAC HOSE WAS ACCIDENTALLY PULLED OUT BY THE PT; SITE REPAIRED AND NEW HOSE/COLLECTING UNIT INSTALLED. NO LEAKAGE NOTED. WILL CONTINUE TO MONITOR.
[2019-02-16 05:23] VITALS: BP 110/69
--- NOTE | 2019-02-16 06:08 | NUR ---
PT IN BED, RESTING COMFORTABLY. NO ACUTE RESPIRATORY DISTRESS, PAIN, OR DISCOMFORT NOTED. WOUND VAC TO LOW MID-ABD IN PLACE, DRESSING INTACT, CANISTER EMPTY. IV SITE 22G TO RW CDI. SIDE RAILS UP X 2, BED IN LOW POSITION, CALL LIGHT WITHIN REACH. WILL ENDORSE TO AM SHIFT.
--- NOTE | 2019-02-16 07:00 | NUR ---
PATIENT CURRENTLY OBSERVED SLEEPING IN BED. ANUPAM DRAIN IN PLACE CURRENTLY DRAINING SEROSANGANOUS DRAINAIGE. RIGHT WRIST IV IN PLACE, CURRENTLY SALINE LOCKED. PATIENT APPEARS TO BE RESTING COMFORTABLY. NO INDICATION OF DISTRESS OR PAIN. BED IN THE LOW POSITION. ALL SAFETY PRECAUTIONS IN PLACE. CALL LIGHT WITHIN REACH.
[2019-02-16 07:42] VITALS: BP 115/70
[2019-02-16 12:02] VITALS: BP 100/61
--- NOTE | 2019-02-16 12:47 | NUR ---
SPOKE TO HERBER RODRIGUES WITH [facility] REASON OF PENDING DELIVERY, SHE STATED THAT SHE TEXTED TAWNYA SON AND HE WILL CALL BACK TO FACILITY TO GIVE REASON. 2S MST PHONE # AND CN NAMED PROVIDED FOR CONTACT INFORMATION.
--- NOTE | 2019-02-16 14:20 | NUR ---
SPOKE TO FAMILY MEMBERS ALL QUESTIONS ANSWERED, ALL COMORBIDITIES RELATED TO DELAY WOUND HEALING AND FURTHER SKIN BREAKS EXPLAINED, THEY VERBALIZES UNDERSTANDING.
[2019-02-16 16:44] VITALS: BP 109/58
--- NOTE | 2019-02-16 17:25 | NUR ---
WOUND VAC DELIVERED TO PATIENT. WILL PROVIDE EDUCATION REGARDING USE OF WOUND VAC.
[2019-02-16 18:05] VITALS: BP 112/76
--- NOTE | 2019-02-16 19:00 | NUR ---
CONTACTED RESIDENT TO REORDER PAIN MED ([facility]) FOR PATIENT TO BE ADMINISTERED PRIOR TO WOUND VAC CHANGE. WILL ENDORSE FUTURE CARE TO NOC NURSE. PATIENT TO BE DISCHARGED LATER THIS EVENINING. CURRENTLY STABLE.
--- NOTE | 2019-02-16 19:55 | NUR ---
PT REFUSED FULL WOUND VAC DRSG CHANGE. [facility] DELIVERED SUPPLIES EARLIER THIS AFTERNOON AND PT'S CURRENT DRSG SUCTION CONNECTED WITH PORTABLE PUMP AND CANISTER DELIVERED BY [facility]. NO AIRLEAKS NOTED. GIVEN VERBAL INSTRUCTIONS ON CARE AND HOW TO TX AIR LEAKS IF THEY OCC. PER HE WAS GIVEN DEMONSTRATION LAST NIGHT AND FEELS COMFORTABLE WITH CARE. ATTENDING NURSE AWARE TO D/C PT.
--- NOTE | 2019-02-16 20:00 | NUR ---
PT. RECEIVED FROM DAY SHIFT, CURRENTLY RESTING IN BED AWAKE AND ALERT. PT. HAS C/O PAIN AT THIS TIME, THROBBING 7/10 ON HER ABDOMEN. PT. IS FOR D/C, CHARGE NURSE NEEDS TO CHANGE DRESSING IN ORDER FOR IT TO BE COMPATIBLE WITH MACHINE THAT WILL BE TAKEN HOME, WILL CONTINUE TO MONITOR PT. AT THIS TIME.
--- NOTE | 2019-02-16 20:01 | NUR ---
PT. NORCO NOT DUE UNTIL 2029, ORDERED. WILL MEDICATE PT. AT THIS TIME ORDERED, PT. C/O OF 710 THROBBING PAIN AT CHANGE OF SHIFT, WILL CONTINUE TO MONITOR PT.
== END 2019-02-16 20:25 | disposition home health service (06) | DRG 721 ==
LOC: ED 07:47 → MU 12:00 → ED 12:00 → MU 14:33
PROVIDERS: Emergency Medicine; Surgery; ADMIT General Practice
PROC: 0JB80ZZ Excision of Abdomen Subcutaneous Tissue and Fascia, Open Approach (ICD-10-PCS; principal; 2019-02-12 12:00)
DX: T81.41XA Infection following a procedure, superficial incisional surgical site, initial encounter (principal); A41.9 Sepsis, unspecified organism; E44.0 Moderate protein-calorie malnutrition; D68.69 Other thrombophilia; L76.33 Postprocedural seroma of skin and subcutaneous tissue following a dermatologic procedure; E87.1 Hypo-osmolality and hyponatremia; E11.9 Type 2 diabetes mellitus without complications; I10 Essential (primary) hypertension; D50.9 Iron deficiency anemia, unspecified; E86.1 Hypovolemia; K21.9 Gastro-esophageal reflux disease without esophagitis; Z79.4 Long term (current) use of insulin; Z68.33 Body mass index [BMI] 33.0-33.9, adult; Z79.84 Long term (current) use of oral hypoglycemic drugs; E87.6 Hypokalemia
CPT/HCPCS: 36600; 82962; 87804; A6550; C9113; G0378; J0690; J0696; J1815; J2270; J2405; J2543; J2704; J3010; J3370; J3480; J3490; J7030; J7060; Q0092; Q0163